=== PATIENT | female | born 2000 | race Caucasian/White ===

== ENCOUNTER 2019-04-01 13:06 | Outpatient (RCR) | payer OTHER | END 2019-04-10 13:59 | disposition home or self-care (01) | LOC: WSOH 13:06 | DX: S39.012A Strain of muscle, fascia and tendon of lower back, initial encounter (principal); X50.0XXA Overexertion from strenuous movement or load, initial encounter; Y92.89 Other specified places as the place of occurrence of the external cause; Y93.F2 Activity, caregiving, lifting; Y99.0 Civilian activity done for income or pay; F32.9 Major depressive disorder, single episode, unspecified; J45.909 Unspecified asthma, uncomplicated; Z79.899 Other long term (current) drug therapy ==

== ENCOUNTER → 2019-09-18 | Outpatient (CLI) | payer BC | LOC: MC.RAD 07:00 | DX: N63.12 Unspecified lump in the right breast, upper inner quadrant (principal) ==

== ENCOUNTER → 2019-09-29 | Outpatient (CLI) | payer BC | LOC: MC.RAD 09:59 | DX: N63.12 Unspecified lump in the right breast, upper inner quadrant (principal) | CPT/HCPCS: A4648 ==